=== PATIENT | male | born 1950 | race Caucasian/White ===

== ENCOUNTER 2017-05-14 15:05 | Emergency (ER) | payer BC, MEDICARE ==
[2017-05-14] MEDS ORDERED: Sodium Chloride 0.9% 2.5 ML Syringe FLUSH PRN (15:16)
[2017-05-14] MEDS ORDERED: Sodium Chloride 0.9% 10 ML Syringe FLUSH PRN (15:16)
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
[2017-05-14 15:52] LABS: CHLORIDE,CL 108 mmol/L (98-110); SODIUM,NA 139 mmol/L (136-146)
--- NOTE | 2017-05-14 16:21 | US ---
ULTRASOUND EXAMINATION OF the left lower extremity WITH DOPPLER HISTORY: Pain FINDINGS: Examination of the left leg was performed from the groin to the calf region. All visualized segments including common femoral, proximal greater saphenous, superficial femoral, popliteal and calf veins appear patent with good compressibility and augmentation. There is no evidence of deep vein thrombos is. There is edema noted within the upper calf. There is a linear hypoechoic structure within the subcuta neous tissues anteriorly, measuring 4.4 x 0.4 cm. IMPRESSION: 1. No evidence of a DVT. 2. Linear hypoechoic area within the anterior upper calf of uncertain etiology. This could represent a thrombosed superficial vein. A small subcutaneous abscess or hematoma is also a consideration.
[2017-05-14 16:34] VITALS: BP 130/80
== END 2017-05-14 17:30 | disposition home or self-care (01) ==
LOC: MW.ED 15:05
DX: L03.116 Cellulitis of left lower limb (principal); E78.00 Pure hypercholesterolemia, unspecified
CPT/HCPCS: 36415; 80053; 85025; 85379; 93971-26-LT; 93971-LT; 99283; 99284-25

== ENCOUNTER 2019-11-16 11:15 | Observation (INO) | payer BC, MEDICARE ==
[2019-11-16 11:53] LABS: BLOOD UREA NITROGEN,BUN 20 mg/dL (7.0-18.0); CARBON DIOXIDE,CO2 27.6 mmol/L (21.0-32.0); CHLORIDE,CL 106 mmol/L (98-107); GLUCOSE RANDOM 99 mg/dL (74-106); LIPASE 90 U/L (73-393); POTASSIUM,K 4.1 mmol/L (3.5-5.1); SODIUM,NA 142 mmol/L (136-148)
--- NOTE | 2019-11-16 12:42 | CR ---
Chest: Portable view of the chest was obtained. Comparison: No prior chest x-ray. Heart size and mediastinum are normal. Lungs are clear with no acute parenchymal change. Old healed left clavicle fracture is noted. Several old healed left-sided rib fractures are noted. No acute osseous finding is appreciated. Impression: 1. Nothing acute is appreciated on portable chest x-ray. Diagnostic code #2 This report was dictated in [place] Standard Time
--- NOTE | 2019-11-16 13:52 | EDM.PDOC ---
ED HPI GENERAL MEDICAL PROBLEM - General Chief Complaint: Chest Pain Stated Complaint: CHEST PAIN Time Seen by Provider: 11/16/19 12:00 Source of Information: Reports: Patient History Limitations: Reports: No Limitations - History of Present Illness Onset: Gradual (two to three days.) Duration: Getting Worse Location: Reports: Chest Quality: Reports: Pressure, Sharp (left chest area) Severity: Mild (to moderate) chest Pain Score (Numeric/FACES): 3 - Related Data Allergies Allergy/AdvReac Type Severity Reaction Status Date / Time No Known Allergies Allergy Verified 05/14/17 15:24 Home Meds: Home Meds . [No Known Home Meds] 11/16/19 [History] Past Medical History HEENT History: Reports: Cataract Cardiovascular History: Reports: High Cholesterol Other Cardiovascular History: hx of hypercholesterolemia Respiratory History: Reports: Other (See Below) Other Respiratory History: L lung pneumo hx 2010 - Past Surgical History HEENT Surgical History: Reports: Cataract Surgery Social & Family History - Family History Family Medical History: Noncontributory - Tobacco Use Smoking Status *Q: Current Every Day Smoker Years of Tobacco use: 40 Packs/Tins Daily: 1 - Caffeine Use Caffeine Use: Reports: Coffee - Recreational Drug Use Recreational Drug Use: No ED ROS GENERAL - Review of Systems Review Of Systems: See Below Constitutional: Reports: No Symptoms HEENT: Reports: No Symptoms Respiratory: Reports: Shortness of Breath (mild SOB) Cardiovascular: Reports: Chest Pain (with pain into the left side of his neck) Endocrine: Reports: No Symptoms GI/Abdominal: Reports: No Symptoms : Reports: No Symptoms Musculoskeletal: Reports: No Symptoms Skin: Reports: No Symptoms Neurological: Reports: No Symptoms ED EXAM, GENERAL - Physical Exam Exam: See Below Exam Limited By: No Limitations General Appearance: Alert, WD/WN, No Apparent Distress Eye Exam: Bilateral Eye: EOMI, Normal Inspection, PERRL Ears: Normal External Exam, Normal Canal, Hearing Grossly Normal, Normal TMs Ear Exam: Bilateral Ear: Auricle Normal, Canal Normal, TM normal Nose: Normal Inspection, Normal Mucosa, No Blood Throat/Mouth: Normal Inspection, Normal Lips, Normal Teeth, Normal Gums, Normal Oropharynx, Normal Voice, No Airway Compromise Head: Atraumatic, Normocephalic Neck: Normal Inspection, Supple, Non-Tender, Full Range of Motion Respiratory/Chest: No Respiratory Distress, Lungs Clear, Normal Breath Sounds, Chest Non-Tender Cardiovascular: Normal Peripheral Pulses, Regular Rate, Rhythm, No Gallop, No JVD, No Murmur, No Rub Peripheral Pulses: 3+: Radial (L), Radial (R), Dorsalis Pedis (L), Dorsalis Pedis (R) GI/Abdominal: Normal Bowel Sounds, Soft, Non-Tender, Other (morbid obesity) (Male) Exam: Deferred Rectal (Males) Exam: Deferred Back Exam: Normal Inspection, Full Range of Motion Extremities: Normal Inspection, Normal Range of Motion, Non-Tender, No Pedal Edema, Normal Capillary Refill Neurological: Alert, Oriented, CN II-XII Intact, Normal Cognition, Normal Gait Skin Exam: Warm, Dry, Intact, Normal Color, No Rash Lymphatic: No Adenopathy Course - Vital Signs Text/Narrative:: I talked with Dr. Wing at approx 1:59PM. I discussed this case with him in detail. His HEART score is a 3-4. He will be admitted to OBS. The patient agrees with the admission. Last Recorded V/S: Last Vital Signs Temp 96.7 F L 11/16/19 11:27 Pulse 89 11/16/19 11:27 Resp 20 11/16/19 11:27 BP 143/96 H 11/16/19 11:27 Pulse Ox 96 11/16/19 11:27 - Orders/Labs/Meds Orders: Active Orders 24 hr Category Date Time Status EKG Documentation Completion [RC] STAT Care 11/16/19 11:21 Active Labs: Laboratory Tests 11/16/19 11/16/19 11/16/19 Range/Units 11:15 11:25 11:25 WBC 6.07 (4.0-11.0) K/uL RBC 4.78 (4.50-5.90) M/uL Hgb 15.6 (13.0-17.0) g/dL Hct 47.8 (38.0-50.0) % MCV 100.0 H (80.0-98.0) fL MCH 32.6 H (27.0-32.0) pg MCHC 32.6 (31.0-37.0) g/dL RDW Std Deviation 50.5 (28.0-62.0) fl RDW Coeff of Rosa 14 (11.0-15.0) % Plt Count 244 (150-400) K/uL MPV 9.10 (7.40-12.00) fL Neut % (Auto) 53.5 (48.0-80.0) % Lymph % (Auto) 31.8 (16.0-40.0) % [place] % (Auto) 12.2 (0.0-15.0) % Eos % (Auto) 2.3 (0.0-7.0) % Baso % (Auto) 0.2 (0.0-1.5) % Neut # (Auto) 3.3 (1.4-5.7) K/uL Lymph # (Auto) 1.9 (0.6-2.4) K/uL Cris[place] # (Auto) 0.7 (0.0-0.8) K/uL Eos # (Auto) 0.1 (0.0-0.7) K/uL Baso # (Auto) 0.0 (0.0-0.1) K/uL Nucleated RBC % 0.0 /100WBC Nucleated RBCs # 0 K/uL Sodium 142 (136-148) mmol/L Potassium 4.1 (3.5-5.1) mmol/L Chloride 106 (98-107) mmol/L Carbon Dioxide 27.6 (21.0-32.0) mmol/L BUN 20 H (7.0-18.0) mg/dL Creatinine 0.8 (0.8-1.3) mg/dL Est Cr Clr Drug Dosing 92.52 mL/min Estimated GFR (MDRD) > 60.0 ml/min Glucose 99 (74-106) mg/dL Calcium 8.9 (8.5-10.1) mg/dL Total Bilirubin 0.6 (0.2-1.0) mg/dL AST 23 (15-37) IU/L ALT 39 (14-63) IU/L Alkaline Phosphatase 95 (46-116) U/L Troponin I < 0.050 (0.000-0.056) ng/mL Total Protein 7.5 (6.4-8.2) g/dL Albumin 3.7 (3.4-5.0) g/dL Globulin 3.8 (2.6-4.0) g/dL Albumin/Globulin Ratio 1.0 (0.9-1.6) Lipase 90 (73-393) U/L Urine Color YELLOW Urine Appearance CLEAR Urine pH 6.0 (5.0-8.0) Ur Specific [place] 1.025 (1.001-1.035) Urine Protein NEGATIVE (NEGATIVE) mg/dL Urine Glucose (UA) NEGATIVE (NEGATIVE) mg/dL Urine Ketones NEGATIVE (NEGATIVE) mg/dL Urine Occult Blood NEGATIVE (NEGATIVE) Urine Nitrite NEGATIVE (NEGATIVE) Urine Bilirubin NEGATIVE (NEGATIVE) Urine Urobilinogen 0.2 (<2.0) EU/dL Ur Leukocyte Esterase NEGATIVE (NEGATIVE) Departure - Departure Time of Disposition: 14:18 Disposition: Refer to Observation Condition: Fair Clinical Impression: Chest pain with moderate risk for cardiac etiology Instructions: Nonspecific Chest Pain, [id number] Referrals: PCP,None [Primary Care Provider] - Forms: ED Department Discharge Sepsis Event Note - Evaluation Sepsis Screening Result: No Definite Risk - Focused Exam Vital Signs: Vital Signs Temp Pulse Resp BP Pulse Ox 11/16/19 11:27 96.7 F L 89 20 143/96 H 96 Date Exam was Performed: 11/16/19 Time Exam was Performed: 14:12
[2019-11-16] MEDS ORDERED: Acetaminophen 325 MG Tab PO PRN (15:11)
[2019-11-16] MEDS ORDERED: Ondansetron 4 MG/2 ML SDV IVPUSH PRN (15:11)
[2019-11-16] MEDS ORDERED: Sodium Chloride 0.9% 2.5 ML Syringe FLUSH PRN (15:11)
[2019-11-16] MEDS ORDERED: Aspirin 325 MG Tab.EC PO ONE (15:14)
--- NOTE | 2019-11-16 15:18 | PCM.HP.2 ---
H&P History of Present Illness - General Date of Service: 11/16/19 Admit Problem/Dx: Admission Diagnosis/Problem Admission Diagnosis/Problem Chest pain Source of Information: Patient History Limitations: Reports: No Limitations - History of Present Illness Initial Comments - Free Text/Narative: This 69 year old male with pmh of dyslipidemia, obesity, and tobacco abuse presented to his PCP clinic with concerns of lightheadedness and some intermittent chest pain. The lightheadedness/dizziness started approximately 1 week ago when he was driving from [place] to here to start work again. he reports the dizziness was intermittent and he noticed it more with turning his head. He reports today it is improved and really hasn't had much dizziness today. He also reports intermittent chest pain, that is sharp in nature on lateral L chest wall, worse with palpation of this area and with movement of arm. He reports he has never had an [place] in the past, reports family history of CAD in mother and brother. He had stress test many years ago, which was negative. He denies fevers, chills or sob. No URI symptoms. Currently no chest pain, unless area on L chest wall palpated. No dizziness. No abdominal pain or constipation or diarrhea. No urinary concerns and no neurological deficits. He reports 1 tin per week chewing tobacco use, social alcohol use, and no recreational drug use. In the ED, labwork WNL. Troponin negative. EKG SR with to ST elevation. BP elevated in ED 140-150/100s. UA negative. CXR negative. He will be admitted for atypical chest pain and dizziness. chest Pain Score (Numeric/FACES): 3 - Related Data Allergies/Adverse Reactions: Allergies Allergy/AdvReac Type Severity Reaction Status Date / Time No Known Allergies Allergy Verified 05/14/17 15:24 Home Medications: Home Meds . [No Known Home Meds] 11/16/19 [History] Past Medical History HEENT History: Reports: Cataract Cardiovascular History: Reports: High Cholesterol Other Cardiovascular History: hx of hypercholesterolemia Respiratory History: Reports: Other (See Below). Denies: Asthma, COPD Other Respiratory History: L lung pneumo hx 2010 Gastrointestinal History: Reports: None Musculoskeletal History: Reports: None Neurological History: Reports: None Psychiatric History: Reports: None Endocrine/Metabolic History: Reports: Obesity/BMI 30+ - Past Surgical History HEENT Surgical History: Reports: Cataract Surgery Respiratory Surgical History: Reports: Other (See Below) (chest tube for hemothorax) Musculoskeletal Surgical History: Reports: Knee Replacement Social & Family History - Family History Family Medical History: Noncontributory - Tobacco Use Smoking Status *Q: Current Every Day Smoker Tobacco Use Within Last Twelve Months: Smokeless Tobacco Years of Tobacco use: 40 Packs/Tins Daily: 0.2 - Caffeine Use Caffeine Use: Reports: Coffee - Alcohol Use Alcohol Use Frequency: Socially - Recreational Drug Use Recreational Drug Use: No - Living Situation & Occupation Living situation: Reports: Occupation: Employed H&P Review of Systems - Review of Systems: Review Of Systems: See Below General: Reports: No Symptoms. Denies: Fever, Chills, Malaise HEENT: Reports: Vertigo Pulmonary: Denies: Shortness of Breath Cardiovascular: Reports: Chest Pain (L chest wall), Lightheadedness. Denies: Syncope Gastrointestinal: Reports: No Symptoms. Denies: Black Stool, Bloody Stool, Nausea, Vomiting Genitourinary: Reports: No Symptoms. Denies: Dysuria, Frequency Musculoskeletal: Reports: No Symptoms Skin: Reports: No Symptoms Psychiatric: Reports: No Symptoms Neurological: Reports: No Symptoms Hematologic/Lymphatic: Reports: No Symptoms Immunologic: Reports: No Symptoms Exam - Exam Exam: See Below - Vital Signs Vital Signs: Last Vital Signs Temp 96.7 F L 11/16/19 11:27 Pulse 89 11/16/19 14:53 Resp 20 11/16/19 11:27 BP 141/93 H 11/16/19 14:53 Pulse Ox 95 11/16/19 14:53 Weight: 130.635 kg - Exam General: Alert, Oriented, Cooperative Neck: Supple, Trachea Midline, +2 Carotid Pulse wo Bruit, Full Range of Motion Lungs: Clear to Auscultation, Normal Respiratory Effort Cardiovascular: Regular Rate, Regular Rhythm, Normal S1, Normal S2. No: Systolic Murmur GI/Abdominal Exam: Normal Bowel Sounds, Soft, Non-Tender, Other (obese abdomen) Back Exam: Normal Inspection, Full Range of Motion Extremities: Normal Inspection, Normal Range of Motion, Non-Tender, No Pedal Edema Neuro Extensive - Mental Status: Alert, Oriented x3 Psychiatric: Alert, Normal Affect, Normal Mood - Patient Data Lab Results Last 24 hrs: Laboratory Results - last 24 hr 11/16/19 11/16/1911/16/20 Range/Units 11:15 11:25 11:25 WBC 6.07 (4.0-11.0) K/uL RBC 4.78 (4.50-5.90) M/uL Hgb 15.6 (13.0-17.0) g/dL Hct 47.8 (38.0-50.0) % MCV 100.0 H (80.0-98.0) fL MCH 32.6 H (27.0-32.0) pg MCHC 32.6 (31.0-37.0) g/dL RDW Std Deviation 50.5 (28.0-62.0) fl RDW Coeff of Rosa 14 (11.0-15.0) % Plt Count 244 (150-400) K/uL MPV 9.10 (7.40-12.00) fL Neut % (Auto) 53.5 (48.0-80.0) % Lymph % (Auto) 31.8 (16.0-40.0) % [place] % (Auto) 12.2 (0.0-15.0) % Eos % (Auto) 2.3 (0.0-7.0) % Baso % (Auto) 0.2 (0.0-1.5) % Neut # (Auto) 3.3 (1.4-5.7) K/uL Lymph # (Auto) 1.9 (0.6-2.4) K/uL [place] # (Auto) 0.7 (0.0-0.8) K/uL Eos # (Auto) 0.1 (0.0-0.7) K/uL Baso # (Auto) 0.0 (0.0-0.1) K/uL Nucleated RBC % 0.0 /100WBC Nucleated RBCs # 0 K/uL Sodium 142 (136-148) mmol/L Potassium 4.1 (3.5-5.1) mmol/L Chloride 106 (98-107) mmol/L Carbon Dioxide 27.6 (21.0-32.0) mmol/L BUN 20 H (7.0-18.0) mg/dL Creatinine 0.8 (0.8-1.3) mg/dL Est Cr Clr Drug Dosing 92.52 mL/min Estimated GFR (MDRD) > 60.0 ml/min Glucose 99 (74-106) mg/dL Calcium 8.9 (8.5-10.1) mg/dL Total Bilirubin 0.6 (0.2-1.0) mg/dL AST 23 (15-37) IU/L ALT 39 (14-63) IU/L Alkaline Phosphatase 95 (46-116) U/L Troponin I < 0.050 (0.000-0.056) ng/mL Total Protein 7.5 (6.4-8.2) g/dL Albumin 3.7 (3.4-5.0) g/dL Globulin 3.8 (2.6-4.0) g/dL Albumin/Globulin Ratio 1.0 (0.9-1.6) Lipase 90 (73-393) U/L Urine Color YELLOW Urine Appearance CLEAR Urine pH 6.0 (5.0-8.0) Ur Specific [place] 1.025 (1.001-1.035) Urine Protein NEGATIVE (NEGATIVE) mg/dL Urine Glucose (UA) NEGATIVE (NEGATIVE) mg/dL Urine Ketones NEGATIVE (NEGATIVE) mg/dL Urine Occult Blood NEGATIVE (NEGATIVE) Urine Nitrite NEGATIVE (NEGATIVE) Urine Bilirubin NEGATIVE (NEGATIVE) Urine Urobilinogen 0.2 (<2.0) EU/dL Ur Leukocyte Esterase NEGATIVE (NEGATIVE) Result Diagrams: 11/16/19 11:25 11/16/19 11:25 Sepsis Event Note - Evaluation Sepsis Screening Result: No Definite Risk - Focused Exam Vital Signs: Vital Signs Temp Pulse Resp BP Pulse Ox 11/16/19 14:53 89 141/93 H 95 11/16/19 11:27 96.7 F L 89 20 143/96 H 96 Date Exam was Performed: 11/16/19 Time Exam was Performed: 15:19 - Problem List (1) Atypical chest pain SNOMED Code(s): 046785027 ICD Code: R07.89 - OTHER CHEST PAIN Status: Acute Current Visit: Yes (2) Dizziness SNOMED Code(s): 039814223, 252113477 ICD Code: R42 - DIZZINESS AND GIDDINESS Status: Acute Current Visit: Yes (3) Dyslipidemia SNOMED Code(s): 565613271 ICD Code: E78.5 - HYPERLIPIDEMIA, UNSPECIFIED Status: Chronic Current Visit: Yes (4) Tobacco chew use SNOMED Code(s): 68894456 ICD Code: Z72.0 - TOBACCO USE Status: Chronic Current Visit: Yes (5) Obesity SNOMED Code(s): 458210923, 214602770 ICD Code: E66.9 - OBESITY, UNSPECIFIED Status: Acute Current Visit: Yes Qualifiers: Obesity type: due to excess calories Obesity classification: adult class 3 (BMI >= 40) Body mass index: BMI 40.0-44.9 Problem List Initiated/Reviewed/Updated: Yes Orders Last 24hrs: Active Orders 24 hr Category Date Time Status Admission Status [Patient Status] [ADT] Stat ADT 11/16/19 14:19 Active Antiembolic Devices [RC] PER UNIT ROUTINE Care 11/16/19 15:12 Active EKG Documentation Completion [RC] STAT Care 11/16/19 11:21 Active Intake and Output [RC] QSHIFT Care 11/16/19 15:11 Active Oxygen Therapy [RC] PRN Care 11/16/19 15:11 Active Telemetry Monitoring [Cardiac Monitoring] [RC] . Care 11/16/19 14:58 Active DIRECTED Up ad Sharmin [RC] ASDIRECTED Care 11/16/19 15:11 Active VTE/DVT Education [RC] PER UNIT ROUTINE Care 11/16/19 15:11 Active Vital Signs [RC] Q4H Care 11/16/19 15:11 Active PT Evaluation and Treatment [CONS] Routine Cons 11/16/19 15:11 Active Echo Comp wo Cont [US] Routine Exams 11/16/19 15:11 Ordered GLYCOSYLATED HEMOGLOBIN,HGBA1C [CHEM] Routine Lab 11/16/19 15:11 Ordered LIPID PANEL [CHEM] Routine Lab 11/16/19 15:11 Ordered TROPONIN I [CHEM] Q6H Lab 11/16/19 17:30 Ordered TROPONIN I [CHEM] Q6H Lab 11/16/19 23:30 Ordered TSH [CHEM] Routine Lab 11/16/19 15:11 Ordered Acetaminophen [Tylenol] Med 11/16/19 15:11 Active 650 mg PO Q4H PRN Aspirin Med 11/17/19 09:00 Active 81 mg PO DAILY Ondansetron [Zofran] Med 11/16/19 15:11 Ordered 4 mg IVPUSH Q4H PRN Sodium Chloride 0.9% [Saline Flush] Med 11/16/19 15:11 Ordered 2.5 ml FLUSH ASDIRECTED PRN atorvaSTATin [Lipitor] Med 11/16/19 21:00 Ordered 20 mg PO BEDTIME Saline Lock Insert [OM.PC] Routine Oth 11/16/19 15:11 Ordered Sequential Compression Device [OM.PC] Per Unit Routine Oth 11/16/19 15:12 Ordered Resuscitation Status Routine Resus Stat 11/16/19 15:11 Ordered Medication Orders Acetaminophen (Tylenol) 650 mg PO Q4H PRN PRN Reason: Pain (Mild 1-3)/fever Aspirin (Aspirin) 81 mg PO DAILY JOSE RAUL Atorvastatin Calcium (Lipitor) 20 mg PO BEDTIME JOSE RAUL Ondansetron HCl (Zofran) 4 mg IVPUSH Q4H PRN PRN Reason: Nausea Sodium Chloride (Saline Flush) 2.5 ml FLUSH ASDIRECTED PRN PRN Reason: Keep Vein Open Assessment/Plan Comment:: This 69 year old male admitted with atypical chest pain and dizziness 1. Atypical chest pain: - Trend troponins - Monitor on telemetry - Obtain Lipid, TSH and A1c - Monitor BP, may consider adding HCTZ - Add ASA - Restart Atorvastatin, patient has not taken for many months. 2. Dizziness: - Obtain ECHO and carotid US - Consult PT for vestibular assessment - Appears euvolemic, obtain orthostatic VS 3. Dyslipidemia: -Atorvastatin 20 mg bedtime VTE prophylaxis: SCDs Diet: heart healthy Code Status: Full code Dispo: 1 day - Mortality Measure Prognosis:: Good
[2019-11-16 15:49] LABS: HEMOGLOBIN A1C 5.6 % (4.5-6.2)
--- NOTE | 2019-11-16 16:42 | US ---
Carotid ultrasound: Multiple real-time images were obtained. Plaque: No significant plaque is appreciated. Comparison: No prior carotid imaging is available. Findings: Velocity measurements: Right side: CCA has a peak systolic velocity of 0.72 m/s. ICA has a peak systolic velocity of 0.71 m/s and peak end-diastolic velocity of 0.36 m/s. ECA has a peak systolic velocity of 0.80 m/s. Vertebral artery has a peak systolic velocity of 0.48 m/s. ICA/CCA ratio is 1.3. Left side: CCA has a peak systolic velocity of 0.64 m/s. ICA has a peak systolic velocity of 0.78 m/s and peak end-diastolic velocity of 0.42 m/s. ECA has a peak systolic velocity of 0.84 m/s. Vertebral artery has a peak systolic velocity of 0.58 m/s. ICA/CCA ratio is 1.3. Impression: 1. No significant plaque, normal velocity measurements. Diagnostic code #1 This report was dictated in [place] Standard Time
[2019-11-16] MEDS ORDERED: atorvaSTATin 20 MG Tab PO SCH (21:00)
[2019-11-17 08:29] VITALS: BP 124/91; PULSE 74
--- NOTE | 2019-11-17 08:34 | PCM.DCSUM1 ---
Discharge Summary - Hospital Course Brief History: This 69 year old male with pmh of dyslipidemia, obesity, and tobacco abuse presented to his PCP clinic with concerns of lightheadedness and some intermittent chest pain. The lightheadedness/dizziness started approximately 1 week ago when he was driving from [place] to here to start work again. he reports the dizziness was intermittent and he noticed it more with turning his head. He reports today it is improved and really hasn't had much dizziness today. He also reports intermittent chest pain, that is sharp in nature on lateral L chest wall, worse with palpation of this area and with movement of arm. He reports he has never had an [place] in the past, reports family history of CAD in mother and brother. He had stress test many years ago, which was negative. He denies fevers, chills or sob. No URI symptoms. Currently no chest pain, unless area on L chest wall palpated. No dizziness. No abdominal pain or constipation or diarrhea. No urinary concerns and no neurological deficits. He reports 1 tin per week chewing tobacco use, social alcohol use, and no recreational drug use. In the ED, labwork WNL. Troponin negative. EKG SR with to ST elevation. BP elevated in ED 140-150/100s. UA negative. CXR negative. He will be admitted for atypical chest pain and dizziness. Diagnosis: Stroke: No - Discharge Data Discharge Date: 11/17/19 Discharge Disposition: Home, Self-Care 01 Condition: Stable - Referral to Home Health Primary Care Physician: PCP None - Discharge Diagnosis/Problem(s) (1) Atypical chest pain SNOMED Code(s): 119079297 ICD Code: R07.89 - OTHER CHEST PAIN Status: Acute Current Visit: Yes (2) Dizziness SNOMED Code(s): 812949619, 443264600 ICD Code: R42 - DIZZINESS AND GIDDINESS Status: Acute Current Visit: Yes (3) Dyslipidemia SNOMED Code(s): 623984262 ICD Code: E78.5 - HYPERLIPIDEMIA, UNSPECIFIED Status: Chronic Current Visit: Yes (4) Tobacco chew use SNOMED Code(s): 04458252 ICD Code: Z72.0 - TOBACCO USE Status: Chronic Current Visit: Yes (5) Obesity SNOMED Code(s): 597583722, 567679958 ICD Code: E66.9 - OBESITY, UNSPECIFIED Status: Acute Current Visit: Yes Qualifiers: Obesity type: due to excess calories Obesity classification: adult class 3 (BMI >= 40) Body mass index: BMI 40.0-44.9 - Patient Summary/Data Consults: Consultations 11/16/19 15:11 PT Evaluation and Treatment [CONS] Routine - Patient Instructions Diet: Heart Healthy Diet Activity: As Tolerated, No Strenuous Activities Showering/Bathing: May Shower Notify Provider of: Fever, Increased Pain, Swelling and Redness, Drainage, Nausea and/or Vomiting Other/Special Instructions: Follow up with primary care provider when back home as well as schedule outpatient stress test - Discharge Plan *PRESCRIPTION DRUG MONITORING PROGRAM REVIEWED*: Not Applicable *COPY OF PRESCRIPTION DRUG MONITORING REPORT IN PATIENT ANA PAULA: Not Applicable Home Medications: Home Meds atorvaSTATin Calcium [Lipitor] 20 mg PO BEDTIME 11/16/19 [History] Aspirin 81 mg PO DAILY tab.chew 11/17/19 [Rx] Fluticasone Propionate [Flonase] 1 spray NASBOTH DAILY #1 bottle 11/17/19 [Rx] Oxygen Therapy Mode: Room Air Patient Handouts: Nonspecific Chest Pain, [id number], Dizziness, [id number] - Discharge Summary/Plan Comment DC Time >30 min.: No Discharge Summary/Plan Comment: Admitting Diagnoses: Chest pain Dizziness Discharge Diagnoses: Chest pain Dizziiness-resolved Other PMH: dyslipidemia obesity tobacco abuse Edd was admitted secondary to atypical chest pain, ACS rule out. Troponins were negative and EKG remains stable no ST changes. No further chest pain, besides pain with palpation to L lateral chest wall, which reproduced that pain. Lipids returns elevated, he continues to refuse to take statin, would recommend to increase this, he is going to talk with his PCP. Also recommended ASA 81 mg daily. Dizziness has also resolved. Carotid negative, ECHo pending on discharge. He was evaluated by PT for dizziness, no acute findings. This would be from sinus congestion, which is mild. Started Flonase. He is eager to be discharged home today. He wants to follow up in [place]. He was urged to be seen soon, and to have stress test as well. He is to return to the ED or clinic if concerns should arise. - General Info Date of Service: 11/17/19 Admission Dx/Problem (Free Text: Admission Diagnosis/Problem Admission Diagnosis/Problem Chest pain Subjective Update: No concerns today. Ambulating in room, asking to be discharged home. - Patient Data Vitals - Most Recent: Last Vital Signs Temp 97.2 F 11/17/19 08:00 Pulse 74 11/17/19 08:00 Resp 18 11/17/19 08:00 BP 124/91 H 11/17/19 08:00 Pulse Ox 93 L 11/17/19 08:00 Orthostatic Blood Pressure [ 153/101 Standing] Orthostatic Blood Pressure [ 153/102 Sitting] Orthostatic Blood Pressure [ 135/88 Supine] Weight - Most Recent: 130.635 kg I&O - Last 24 hours: Intake & Output 11/16/19 11/17/19 11/17/19 22:59 06:59 14:59 Intake Total 200 700 Output Total 875 Balance 200 -175 Lab Results - Last 24 hrs: Laboratory Results - last 24 hr 11/16/19 11/16/19 11/16/19 Range/Units 11:15 11:25 11:25 WBC 6.07 (4.0-11.0) K/uL RBC 4.78 (4.50-5.90) M/uL Hgb 15.6 (13.0-17.0) g/dL Hct 47.8 (38.0-50.0) % MCV 100.0 H (80.0-98.0) fL MCH 32.6 H (27.0-32.0) pg MCHC 32.6 (31.0-37.0) g/dL RDW Std Deviation 50.5 (28.0-62.0) fl RDW Coeff of Rosa 14 (11.0-15.0) % Plt Count 244 (150-400) K/uL MPV 9.10 (7.40-12.00) fL Neut % (Auto) 53.5 (48.0-80.0) % Lymph % (Auto) 31.8 (16.0-40.0) % [place] % (Auto) 12.2 (0.0-15.0) % Eos % (Auto) 2.3 (0.0-7.0) % Baso % (Auto) 0.2 (0.0-1.5) % Neut # (Auto) 3.3 (1.4-5.7) K/uL Lymph # (Auto) 1.9 (0.6-2.4) K/uL Douglas # (Auto) 0.7 (0.0-0.8) K/uL Eos # (Auto) 0.1 (0.0-0.7) K/uL Baso # (Auto) 0.0 (0.0-0.1) K/uL Nucleated RBC % 0.0 /100WBC Nucleated RBCs # 0 K/uL Sodium 142 (136-148) mmol/L Potassium 4.1 (3.5-5.1) mmol/L Chloride 106 (98-107) mmol/L Carbon Dioxide 27.6 (21.0-32.0) mmol/L BUN 20 H (7.0-18.0) mg/dL Creatinine 0.8 (0.8-1.3) mg/dL Est Cr Clr Drug Dosing 92.52 mL/min Estimated GFR (MDRD) > 60.0 ml/min Glucose 99 (74-106) mg/dL Hemoglobin A1c (4.5-6.2) % Calcium 8.9 (8.5-10.1) mg/dL Total Bilirubin 0.6 (0.2-1.0) mg/dL AST 23 (15-37) IU/L ALT 39 (14-63) IU/L Alkaline Phosphatase 95 (46-116) U/L Troponin I < 0.050 (0.000-0.056) ng/mL Total Protein 7.5 (6.4-8.2) g/dL Albumin 3.7 (3.4-5.0) g/dL Globulin 3.8 (2.6-4.0) g/dL Albumin/Globulin Ratio 1.0 (0.9-1.6) Triglycerides (0-200) mg/dL Cholesterol (50-200) mg/dL LDL Cholesterol, Calc (60-180) mg/dL VLDL Cholesterol (5-55) mg/dL HDL Cholesterol (40-60) mg/dL Cholesterol/HDL Ratio (3.3-6.0) Lipase 90 (73-393) U/L TSH 3rd Generation (0.36-3.74) uIU/mL Urine Color YELLOW Urine Appearance CLEAR Urine pH 6.0 (5.0-8.0) Ur Specific [place] 1.025 (1.001-1.035) Urine Protein NEGATIVE (NEGATIVE) mg/dL Urine Glucose (UA) NEGATIVE (NEGATIVE) mg/dL Urine Ketones NEGATIVE (NEGATIVE) mg/dL Urine Occult Blood NEGATIVE (NEGATIVE) Urine Nitrite NEGATIVE (NEGATIVE) Urine Bilirubin NEGATIVE (NEGATIVE) Urine Urobilinogen 0.2 (<2.0) EU/dL Ur Leukocyte Esterase NEGATIVE (NEGATIVE) 11/16/19 11/16/19 11/16/19 Range/Units 11:25 11:25 17:19 WBC (4.0-11.0) K/uL RBC (4.50-5.90) M/uL Hgb (13.0-17.0) g/dL Hct (38.0-50.0) % MCV (80.0-98.0) fL MCH (27.0-32.0) pg MCHC (31.0-37.0) g/dL RDW Std Deviation (28.0-62.0) fl RDW Coeff of Rosa (11.0-15.0) % Plt Count (150-400) K/uL MPV (7.40-12.00) fL Neut % (Auto) (48.0-80.0) % Lymph % (Auto) (16.0-40.0) % [place] % (Auto) (0.0-15.0) % Eos % (Auto) (0.0-7.0) % Baso % (Auto) (0.0-1.5) % Neut # (Auto) (1.4-5.7) K/uL Lymph # (Auto) (0.6-2.4) K/uL [place] # (Auto) (0.0-0.8) K/uL Eos # (Auto) (0.0-0.7) K/uL Baso # (Auto) (0.0-0.1) K/uL Nucleated RBC % /100WBC Nucleated RBCs # K/uL Sodium (136-148) mmol/L Potassium (3.5-5.1) mmol/L Chloride (98-107) mmol/L Carbon Dioxide (21.0-32.0) mmol/L BUN (7.0-18.0) mg/dL Creatinine (0.8-1.3) mg/dL Est Cr Clr Drug Dosing mL/min Estimated GFR (MDRD) ml/min Glucose (74-106) mg/dL Hemoglobin A1c 5.6 (4.5-6.2) % Calcium (8.5-10.1) mg/dL Total Bilirubin (0.2-1.0) mg/dL AST (15-37) IU/L ALT (14-63) IU/L Alkaline Phosphatase (46-116) U/L Troponin I < 0.050 (0.000-0.056) ng/mL Total Protein (6.4-8.2) g/dL Albumin (3.4-5.0) g/dL Globulin (2.6-4.0) g/dL Albumin/Globulin Ratio (0.9-1.6) Triglycerides 172 (0-200) mg/dL Cholesterol 243 H (50-200) mg/dL LDL Cholesterol, Calc 170 (60-180) mg/dL VLDL Cholesterol 34 (5-55) mg/dL HDL Cholesterol 39 L (40-60) mg/dL Cholesterol/HDL Ratio 6.2 H (3.3-6.0) Lipase (73-393) U/L TSH 3rd Generation 1.67 (0.36-3.74) uIU/mL Urine Color Urine Appearance Urine pH (5.0-8.0) Ur Specific [place] (1.001-1.035) Urine Protein (NEGATIVE) mg/dL Urine Glucose (UA) (NEGATIVE) mg/dL Urine Ketones (NEGATIVE) mg/dL Urine Occult Blood (NEGATIVE) Urine Nitrite (NEGATIVE) Urine Bilirubin (NEGATIVE) Urine Urobilinogen (<2.0) EU/dL Ur Leukocyte Esterase (NEGATIVE) 11/16/19 Range/Units 23:26 WBC (4.0-11.0) K/uL RBC (4.50-5.90) M/uL Hgb (13.0-17.0) g/dL Hct (38.0-50.0) % MCV (80.0-98.0) fL MCH (27.0-32.0) pg MCHC (31.0-37.0) g/dL RDW Std Deviation (28.0-62.0) fl RDW Coeff of Rosa (11.0-15.0) % Plt Count (150-400) K/uL MPV (7.40-12.00) fL Neut % (Auto) (48.0-80.0) % Lymph % (Auto) (16.0-40.0) % [place] % (Auto) (0.0-15.0) % Eos % (Auto) (0.0-7.0) % Baso % (Auto) (0.0-1.5) % Neut # (Auto) (1.4-5.7) K/uL Lymph # (Auto) (0.6-2.4) K/uL [place] # (Auto) (0.0-0.8) K/uL Eos # (Auto) (0.0-0.7) K/uL Baso # (Auto) (0.0-0.1) K/uL Nucleated RBC % /100WBC Nucleated RBCs # K/uL Sodium (136-148) mmol/L Potassium (3.5-5.1) mmol/L Chloride (98-107) mmol/L Carbon Dioxide (21.0-32.0) mmol/L BUN (7.0-18.0) mg/dL Creatinine (0.8-1.3) mg/dL Est Cr Clr Drug Dosing mL/min Estimated GFR (MDRD) ml/min Glucose (74-106) mg/dL Hemoglobin A1c (4.5-6.2) % Calcium (8.5-10.1) mg/dL Total Bilirubin (0.2-1.0) mg/dL AST (15-37) IU/L ALT (14-63) IU/L Alkaline Phosphatase (46-116) U/L Troponin I < 0.050 (0.000-0.056) ng/mL Total Protein (6.4-8.2) g/dL Albumin (3.4-5.0) g/dL Globulin (2.6-4.0) g/dL Albumin/Globulin Ratio (0.9-1.6) Triglycerides (0-200) mg/dL Cholesterol (50-200) mg/dL LDL Cholesterol, Calc (60-180) mg/dL VLDL Cholesterol (5-55) mg/dL HDL Cholesterol (40-60) mg/dL Cholesterol/HDL Ratio (3.3-6.0) Lipase (73-393) U/L TSH 3rd Generation (0.36-3.74) uIU/mL Urine Color Urine Appearance Urine pH (5.0-8.0) Ur Specific [place] (1.001-1.035) Urine Protein (NEGATIVE) mg/dL Urine Glucose (UA) (NEGATIVE) mg/dL Urine Ketones (NEGATIVE) mg/dL Urine Occult Blood (NEGATIVE) Urine Nitrite (NEGATIVE) Urine Bilirubin (NEGATIVE) Urine Urobilinogen (<2.0) EU/dL Ur Leukocyte Esterase (NEGATIVE) Med Orders - Current: Current Medications Acetaminophen (Tylenol) 650 mg PO Q4H PRN PRN Reason: Pain (Mild 1-3)/fever Aspirin (Aspirin) 81 mg PO DAILY [facility] Last Admin: 11/17/19 08:17 Dose: 81 mg Atorvastatin Calcium (Lipitor) 20 mg PO BEDTIME [facility] Last Admin: 11/16/19 20:48 Dose: Not Given Fluticasone Propionate (Flonase) 0 gm NASBOTH DAILY [facility] Ondansetron HCl (Zofran) 4 mg IVPUSH Q4H PRN PRN Reason: Nausea Sodium Chloride (Saline Flush) 2.5 ml FLUSH ASDIRECTED PRN PRN Reason: Keep Vein Open Discontinued Medications Aspirin (Ecotrin) 325 mg PO ONETIME ONE Stop: 11/16/19 15:15 Last Admin: 11/16/19 15:48 Dose: 325 mg
[2019-11-17] MEDS ORDERED: Fluticasone Propionate Nasal Spray 16 GM Bottle ONE (08:58)
[2019-11-17] MEDS ORDERED: Fluticasone Propionate Nasal Spray 16 GM Bottle NASBOTH SCH (09:00)
[2019-11-17] MEDS ORDERED: Aspirin 81 MG Tab.Chew PO SCH (09:00)
== END 2019-11-17 12:00 | disposition home or self-care (01) ==
LOC: MW.ED 11:15 → MW.MS 15:07
PROVIDERS: ADMIT Internal Medicine; ATTEND Internal Medicine
DX: R07.89 Other chest pain (principal); R42 Dizziness and giddiness; E78.5 Hyperlipidemia, unspecified; E66.09 Other obesity due to excess calories; E78.00 Pure hypercholesterolemia, unspecified; F17.210 Nicotine dependence, cigarettes, uncomplicated; Z68.41 Body mass index [BMI] 40.0-44.9, adult; Z82.49 Family history of ischemic heart disease and other diseases of the circulatory system; Z79.82 Long term (current) use of aspirin; Z79.899 Other long term (current) drug therapy
CPT/HCPCS: 36415; 71045; 80053; 80061; 81003; 83036; 83690; 84443; 84484; 85025; 93005; 93306; 93880; 97161; 99285; A9270; G0378; 99283